=== PATIENT | female | born 1955 | race Caucasian/White ===

== ENCOUNTER 2017-06-13 17:50 | Emergency (ER) | payer BC, OTHER ==
[~2017-06-13] VITALS: Ht 162.6 cm; Wt 56.7 kg
[2017-06-13] MEDS ORDERED: MESA1.2T (18:08)
[2017-06-13] MEDS ORDERED: [UNRECOGNIZED DRUG - REMARK] (18:08)
[2017-06-13] MEDS ORDERED: [UNRECOGNIZED DRUG - REMARK] (18:08)
[2017-06-13] MEDS ORDERED: [UNRECOGNIZED DRUG - REMARK] (18:08)
--- NOTE | 2017-06-13 18:13 | NUR ---
PT IS IN ROOM #1B. DR LEONARDO EVALUATED THE PT.
[2017-06-13] MEDS ORDERED: IV NORMAL SALINE 1000 ML BAG IV ONE (19:15)
[2017-06-13 19:22] LABS: BASOPHILS # (AUTO) 0.1 K/uL (0.0-8.0); BASOPHILS % (AUTO) 0.6 % (0.0-2.0); EOSINOPHILS # (AUTO) 0.1 K/uL (0.0-0.7); EOSINOPHILS % (AUTO) 0.7 % (0.0-7.0); HEMATOCRIT 43.6 % (37-47); HEMOGLOBIN 14.3 G/DL (12.0-16.0); LYMPHOCYTES # (AUTO) 2.9 K/UL (0.8-4.8); LYMPHOCYTES % (AUTO) 26.3 % (20.5-51.5); MEAN CORPUSCULAR HEMOGLOBIN 28.8 UUG (27.0-31.0); MEAN CORPUSCULAR HGB CONC 33 g/dL (32.0-37.0); MONOCYTES # (AUTO) 0.8 K/UL (0.1-1.30); NEUTROPHILS # (AUTO) 7.2 K/UL (1.8-8.9); NEUTROPHILS % (AUTO) 65.4 % (38.5-71.5); PLATELET COUNT (AUTO) 368 K/UL (150-450); RED BLOOD CELL COUNT(AUTO) 4.96 MIL/UL (4.2-5.4); WHITE BLOOD COUNT (AUTO) 11.1 K/UL (4.0-11.2)
--- NOTE | 2017-06-13 19:23 | NUR ---
IV 20 GAUGE INSERTED IN LAC, NS INFUSING WELL AT THIS TIME., NO REDNESS/SWELLING/PAIN AT THIS TIME.
[2017-06-13 19:33] LABS: BILIRUBIN,DIRECT 0.1 mg/dL (0.0-0.2); BILIRUBIN,TOTAL 0.4 mg/dL (0.2-1.0); CREATININE 0.9 mg/dL (0.6-1.3); POTASSIUM 3.9 mmol/L (3.5-5.1); TOTAL PROTEIN, SERUM 7.7 g/dL (6.4-8.2)
[2017-06-13 19:43] LABS: *BILIRUBIN,URIN NEGATIVE (NEGATIVE); *BLOOD, URINE Trace-lysed (NEGATIVE); *CLARITY,URINE CLEAR (CLEAR); *COLOR,URINE YELLOW (YELLOW); *KETONES,URINE TRACE (NEGATIVE); *PROTEIN,URINE NEGATIVE (NEGATIVE); *UROBILINOGEN,URINE 0.2 E.U./dl (NORMAL); LEUKOCYTE ESTERASE ,URINE NEGATIVE (NEGATIVE); NITRITE, URINE NEGATIVE (NEGATIVE); UGLUCOSE NEGATIVE (NEGATIVE)
--- NOTE | 2017-06-13 19:57 | NUR ---
DPatient discharged to home in stable conditon. Written and verbal after care instructions given. Patient verbalizes understanding of instructions. SL IN LAC DC'D, CATHETER INTACT.
[2017-06-13 19:58] VITALS: BP 136/74
[2017-06-13] MEDS ORDERED: MECLIZINE HCL 25 MG TABLET PO ONE (20:00)
[2017-06-13] MEDS ORDERED: MECLIZINE HCL 25 MG TABLET ONE (20:02)
[2017-06-13 20:06] LABS: MUCUS,URINE FEW /LPF (0-FEW); SQUAMOUS EPITHELIAL CELL,UR FEW /HPF (NONE SEEN)
== END 2017-06-13 19:59 | disposition home or self-care (01) ==
LOC: ER 17:50
DX: R42 Dizziness and giddiness (principal); F41.9 Anxiety disorder, unspecified
CPT/HCPCS: 36415; 83690; 85025; A4663; J7030; J8597